=== PATIENT | male | born 1985 | race African-American/Black ===

== ENCOUNTER 2017-10-17 04:38 | Emergency (ER) | payer OTHER, SELFPAY ==
[2017-10-17 04:59] LABS: #Basophils 0.1 thou/uL (0.0-0.2); #Eosinphils 0.1 thou/uL (0.0-0.7); #Lymphocytes 4.2 thou/uL (1.20-3.40); #Monocytes 0.6 thou/uL (0.11-0.59); #Neutrophils 4.2 thou/uL (1.40-6.50); %Eosinophils 1.2 % (0.0-10.0); %Lymphocytes 45.9 % (21.0-51.0); %Monocytes 6.4 % (0.0-10.0); %Neutrophils 45.5 % (42.0-75.0); Mean Corpuscular HGB CONC 35.6 g/dL (32.0-36.0); Mean Corpuscular Hemoglobin 34.3 pg (27.0-31.0); Mean Corpuscular Volume 96.5 fL (78.0-98.0); Mean Platelet Volume 7.5 fL (7.4-10.4); Platelet Count 144 thou/uL (130-400); RBC Distribution Width 10.9 % (11.5-14.5); Red Blood Cell (RBC) Count 4.36 mill/uL (4.70-6.10); White Blood Cell (WBC) Count 9.2 thou/uL (4.8-10.8)
[2017-10-17 05:13] LABS: ALT (SGPT) 8 U/L (8-55); AST (SGOT) 20 U/L (5-34); Albumin 3.8 g/dL (3.5-5.0); Alcohol Less than 10 mg/dL (Less than 10); Alkaline Phosphatase 43 U/L (40-150); Anion Gap 9 mmol/L (10-20); BUN (Urea Nitrogen) 12 mg/dL (8.9-20.6); Bilirubin, Total 0.5 mg/dL (0.2-1.2); Calc. Creatinine Clearance 0 mL/min (70-130); Calcium 8.3 mg/dL (7.8-10.44); Carbon Dioxide 24 mmol/L (22-29); Chloride 107 mmol/L (98-107); Estimated GFR-MDRD Greater than 90; Globulin 2.2 g/dL (2.4-3.5); Glucose 95 mg/dL (70-105); Lipase 90 U/L (8-78); Potassium 3.4 mmol/L (3.5-5.1); Sodium 137 mmol/L (136-145)
[2017-10-17 07:26] LABS: Bilirubin Negative (Negative); Blood, Urine Negative (Negative); Clarity CLEAR (Clear); Glucose, Urine (Dipstick) Negative (Negative); Leukocyte Negative (Negative); Nitrite Negative (Negative); Protein, Urine (Dipstick) Negative (Neg-Trace); Specific Gravity, Urine 1.038 (1.002-1.036); Urobilinogen 0.2 mg/dL (0.2-1.0)
[2017-10-17] MEDS ORDERED: Adacel (T-DAP) 0.5 ML VIAL ONE (07:27)
[2017-10-17 07:36] LABS: Amphetamine Not Detected (NotDetected); Barbiturates Screen Not Detected (NotDetected); Benzodiazepine Screen Not Detected (NotDetected); Cocaine Metabolite Screen Not Detected (NotDetected); Medtox Control Line Valid? VALID (VALID); Medtox Reader # READER 4; Methadone Not Detected (NotDetected); Methamphetamine Not Detected (NotDetected); Opiate Screen Not Detected (NotDetected); Oxycodone Screen Not Detected (NotDetected); Phencyclidine (PCP) Not Detected (NotDetected); THC/Cannabinoid Screen Detected (NotDetected); Tricyclic Screen Not Detected (NotDetected)
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
[2017-10-17] MEDS ORDERED: ISOVUE-370 76%-LOCM 1 ML ONE (12:50)
== END 2017-10-17 11:15 | disposition home or self-care (01) ==
LOC: ERS 04:38
DX: S40.812A Abrasion of left upper arm, initial encounter (principal); F17.210 Nicotine dependence, cigarettes, uncomplicated; V89.2XXA Person injured in unspecified motor-vehicle accident, traffic, initial encounter
CPT/HCPCS: 36415; 70450; 71260; 72125; 74177; 80053; 80306; 80307; 81003; 83690; 85025; 90471; 90715; 96360; G0390

== ENCOUNTER 2017-10-18 15:04 | Emergency (ER) | payer OTHER, SELFPAY ==
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
== END 2017-10-18 16:37 | disposition home or self-care (01) ==
LOC: SCSER 15:04
DX: S43.401A Unspecified sprain of right shoulder joint, initial encounter (principal); J45.909 Unspecified asthma, uncomplicated; F17.210 Nicotine dependence, cigarettes, uncomplicated; V49.9XXA Car occupant (driver) (passenger) injured in unspecified traffic accident, initial encounter

== ENCOUNTER 2018-03-25 16:30 | Emergency (ER) | payer OTHER, SELFPAY ==
[2018-03-25] MEDS ORDERED: Azithromycin 250 MG TAB ONE (17:20)
[2018-03-25] MEDS ORDERED: cefTRIAXone\\ROCEPHIN 250 MG VIAL ONE (17:20)
[2018-03-25] MEDS ORDERED: Lidocaine 1% MPF 2 ML VIAL ONE (17:20)
[2018-03-25 17:24] LABS: Bilirubin Negative (Negative); Blood, Urine Trace (Negative); Clarity Hazy (Clear); Glucose, Urine (Dipstick) Negative (Negative); Leukocyte Small (Negative); Nitrite Negative (Negative); Protein, Urine (Dipstick) Negative (Neg-Trace); Specific Gravity, Urine 1.025 (1.005-1.030); Urobilinogen 0.2 mg/dL (0.2-1.0)
[2018-03-25 17:31] LABS: Bacteria/HPF 1+ HPF (None Seen); RBC/HPF 0-3 HPF (0-3); Squamous Epithelial 0-3 HPF (0-3)
[2018-03-26 22:49] LABS: Chlamydia by PCR Not Detected (NotDetected); GC by PCR DETECTED (NotDetected)
== END 2018-03-25 17:43 | disposition home or self-care (01) ==
LOC: SCSER 16:30
DX: R36.9 Urethral discharge, unspecified (principal); I10 Essential (primary) hypertension; J45.909 Unspecified asthma, uncomplicated; F17.200 Nicotine dependence, unspecified, uncomplicated
CPT/HCPCS: 81003; 81015; 87491; 87591; 96372; J0696

== ENCOUNTER 2018-10-26 11:52 | Emergency (ER) | payer SELFPAY ==
[2018-10-26] MEDS ORDERED: cefTRIAXone\\ROCEPHIN 250 MG VIAL ONE (12:19)
[2018-10-26] MEDS ORDERED: Azithromycin 250 MG TAB ONE (12:19)
[2018-10-26] MEDS ORDERED: Lidocaine 1% PF 5 ML VIAL ONE (12:22)
[2018-10-29 01:28] LABS: Chlam.trachomatis by PCR,Urine Not Detected (NotDetected)
== END 2018-10-26 12:40 | disposition home or self-care (01) ==
LOC: SCSER 11:52
DX: R36.9 Urethral discharge, unspecified (principal); F17.210 Nicotine dependence, cigarettes, uncomplicated; J45.909 Unspecified asthma, uncomplicated
CPT/HCPCS: 87491; 87591; 96372; 99283; J0696; J2001

== ENCOUNTER 2023-03-14 11:42 | Emergency (ER) | payer SELFPAY ==
[2023-03-14] MEDS ORDERED: Lidocaine 1% PF 5 ML VIAL ONE (12:15)
== END 2023-03-14 13:25 | disposition home or self-care (01) ==
LOC: ERS 11:42
DX: S62.621A Displaced fracture of middle phalanx of left index finger, initial encounter for closed fracture (principal); S60.451A Superficial foreign body of left index finger, initial encounter; F17.210 Nicotine dependence, cigarettes, uncomplicated; W33.01XA Accidental discharge of shotgun, initial encounter
CPT/HCPCS: 29085